=== PATIENT | female | born 1960 | race Caucasian/White ===

== ENCOUNTER 2024-03-13 02:12 | Emergency (ER) | payer MEDICARE, BC ==
[~2024-03-13] VITALS: Ht 160 cm; Wt 73.5 kg
[2024-03-13] MEDS ORDERED: MORPHINE SULFATE INJ 2 MG/ML DISP.SYRIN IM ONE (03:00)
[2024-03-13] MEDS ORDERED: ONDANSETRON HCL/PF 4 MG/2 ML VIAL ONE ×3 (03:01→08:05)
[2024-03-13] MEDS ORDERED: MORPHINE SULFATE INJ 4 MG/ML DISP.SYRIN ONE (03:01)
[2024-03-13] MEDS: ONDANSETRON HCL/PF - ER 4 MG/2 ML VIAL IV ONE (03:06)
[2024-03-13] MEDS: MORPHINE SULFATE INJ 2 MG/ML DISP.SYRIN IV ONE (03:06)
[2024-03-13] MEDS ORDERED: ONDA4TAB11 PO (07:43)
[2024-03-13] MEDS ORDERED: NALO4SPR BNOSTRILS (07:43)
[2024-03-13] MEDS ORDERED: HYDR-3980 PO (07:43)
[2024-03-13] MEDS: ONDANSETRON HCL/PF 4 MG/2 ML VIAL IVP ONE (08:01)
[2024-03-13] MEDS: IV NS 0.9% 1,000 ML BAG IV ONE (08:13)
[2024-03-13 08:15] LABS: BASOPHILS # (AUTO) 0.1 K/uL (0.0-0.2); BASOPHILS % (AUTO) 0.4 % (0.0-2.0); EOSINOPHILS % (AUTO) 0.1 % (0.0-6.0); HEMATOCRIT 29 % (33-45); HEMOGLOBIN 9.8 g/dL (11.5-14.8); LYMPHOCYTES # (AUTO) 1.2 K/uL (0.8-4.8); LYMPHOCYTES % (AUTO) 9.4 % (20.0-44.0); MEAN CORPUSCULAR HEMOGLOBIN 31 PG (26.0-33.0); MEAN CORPUSCULAR HGB CONC 34 g/dl (31.0-36.0); MEAN CORPUSCULAR VOLUME 91 fL (82-100); MONOCYTES # (AUTO) 0.6 K/uL (0.1-1.30); MONOCYTES % (AUTO) 4.3 % (2.0-12.0); NEUTROPHILS % (AUTO) 85.8 % (43.0-81.0); PLATELET COUNT (AUTO) 170 K/uL (150-450); RED CELL DISTRIBUTION WIDTH 12.6 % (11.5-15.0); WHITE BLOOD COUNT (AUTO) 12.8 K/uL (4.3-11.0)
[2024-03-13 08:25] LABS: CALCIUM, SERUM 9.5 mg/dL (8.5-10.1); CREATININE 2.1 mg/dL (0.6-1.3); POTASSIUM 4.2 mmol/L (3.5-5.1)
[2024-03-13] MEDS ORDERED: CHOL100043 PO (09:06)
[2024-03-13] MEDS ORDERED: PRAV20TA4 PO (09:06)
[2024-03-13] MEDS ORDERED: ASPI-1169 PO (09:06)
[2024-03-13] MEDS ORDERED: UBID200C18 PO (09:06)
[2024-03-13] MEDS ORDERED: ENAL-78 PO (09:06)
[2024-03-13] MEDS ORDERED: ATEN25TA PO (09:06)
[2024-03-13] MEDS ORDERED: ALLO100T PO (09:06)
[2024-03-13] MEDS ORDERED: [UNRECOGNIZED DRUG - OTHER] PO (09:06)
[2024-03-13] MEDS ORDERED: LEVO88TA5 PO (09:06)
[2024-03-13] MEDS ORDERED: ACETAMINOPHEN 325 MG TABLET ONE ×3 (10:17→20:50)
[2024-03-13] MEDS: ACETAMINOPHEN 325 MG TABLET PO STA (10:25)
[2024-03-13] MEDS: ACETAMINOPHEN 325 MG TABLET PO ONE ×2 (15:44→20:55)
[2024-03-13 18:36] VITALS: TEMP 97.9
[2024-03-14] MEDS ORDERED: IBUPROFEN 600 MG TABLET ONE (00:35)
[2024-03-14] MEDS: IBUPROFEN 600 MG TABLET PO ONE (00:37)
[2024-03-14] MEDS ORDERED: ACETAMINOPHEN 325 MG TABLET ONE ×3 (01:07→10:05)
[2024-03-14] MEDS: ACETAMINOPHEN 325 MG TABLET PO ONE ×3 (01:08→10:19)
[2024-03-14] MEDS ORDERED: ATORVASTATIN 10 MG TABLET PO SCH (09:00)
[2024-03-14] MEDS ORDERED: HYDROCODONE/APAP 10/325MG TABLET PO PRN (09:30)
[2024-03-14] MEDS ORDERED: ASPIRIN EC 81 MG TABLET.DR PO ONE (10:05)
[2024-03-14] MEDS: ASPIRIN 81 MG TAB.CHEW PO SCH (10:10)
[2024-03-14] MEDS: ALLOPURINOL 100 MG TABLET PO SCH (10:10)
[2024-03-14] MEDS: LEVOTHYROXINE SODIUM 88 MCG TABLET PO SCH (10:11)
[2024-03-14] MEDS: HEPARIN SODIUM, PORCINE 5000 UNITS/1 ML VIAL SQ SCH (10:30)
[2024-03-14] MEDS ORDERED: KETAMINE HCL(200MG/20ML) 10 MG/ML VIAL IV ONE (10:30)
[2024-03-14 12:14] VITALS: BP 144/89; O2SAT 97
== END 2024-03-14 12:48 | disposition short-term general hospital (02) ==
LOC: ER 02:20 → TELE1 09:12 → UNDOADMIN 09:12 → ER 03-14 12:48
DX: M25.561 Pain in right knee (principal); I10 Essential (primary) hypertension; Q61.3 Polycystic kidney, unspecified; Z88.5 Allergy status to narcotic agent; W10.9XXA Fall (on) (from) unspecified stairs and steps, initial encounter; Y93.01 Activity, walking, marching and hiking; Y92.89 Other specified places as the place of occurrence of the external cause; Y99.8 Other external cause status
CPT/HCPCS: 29505; 36415; 73564; 73700; 80048; 84484; 85025; 93005; 96361; 96372; 96374; 96375; 96376; 99285; J1644; J2270; J2405; J7030